=== PATIENT | male | born 1950 | race African-American/Black ===

== ENCOUNTER 2017-08-16 08:58 | Day surgery (SDC) | END 2017-08-16 12:59 | disposition home or self-care (01) ==

== ENCOUNTER 2018-10-13 08:22 | Emergency (ER) | payer OTHER ==
[~2018-10-13] VITALS: Ht 188 cm; Wt 110.0 kg
[~2018-10-13 08:22] MED LIST: APRESOLINE; ASPIRIN; CYCL10TA7 PO; NAPR-985 PO
[2018-10-13 08:24] VITALS: BP 149/70; PULSE 78; RESP 18; Ht 188 cm; Wt 110.0 kg
[2018-10-13] MEDS ORDERED: KETOROLAC 30 MG INJ IM STA (08:45)
== END 2018-10-13 09:03 | disposition home or self-care (01) ==
LOC: FTE 08:22
DX: S39.012A Strain of muscle, fascia and tendon of lower back, initial encounter (principal); I10 Essential (primary) hypertension; F17.210 Nicotine dependence, cigarettes, uncomplicated; M62.830 Muscle spasm of back; X50.0XXA Overexertion from strenuous movement or load, initial encounter; Y92.9 Unspecified place or not applicable
CPT/HCPCS: 96372; 99284; J1885